=== PATIENT | male | born 1970 | race Caucasian/White ===

== ENCOUNTER 2018-11-15 01:21 | Emergency (ER) | payer OTHER ==
[~2018-11-15] VITALS: Ht 177.8 cm; Wt 117.9 kg
[2018-11-15 01:29] VITALS: Ht 177.8 cm; Wt 117.9 kg
[2018-11-15 02:03] VITALS: BP 139/73
== END 2018-11-15 01:46 | disposition other institution (70) ==
LOC: ED 01:21
DX: Z02.89 Encounter for other administrative examinations (principal)